=== PATIENT | male | born 1970 | race Caucasian/White ===

== ENCOUNTER 2017-01-11 10:16 | Emergency (ER) | payer OTHER ==
[2017-01-11 10:27] VITALS: TEMP 97
[2017-01-11] MEDS ORDERED: SODIUM CHLORIDE 0.9% 1,000 ML IV STA (10:52)
[2017-01-11 11:07] LABS: Basophils % (A) 1 %; CH 31.4; CHCM 35.3; Eosinophils # (A) 0.2 k/uL (0-0.7); Eosinophils % (A) 4 %; HCT 47.7 % (39.0-53.0); HDW 2.71; HGB 16.8 gm/dL (13.0-17.5); Luc # (Auto) 0.16; Luc % (Auto) 3; Lymphocytes % (A) 16 %; MCH 31.4 pg (25.0-35.0); MCHC 35.1 g/dL (31.0-37.0); MCV 89.5 fL (80.0-100.0); Monocytes # (A) 0.5 k/uL (0-1.0); Monocytes % (A) 8 %; Neutrophils # (A) 4.3 k/uL (1.3-7.7); Neutrophils % (A) 69 %; RBC 5.33 m/uL (4.30-5.90); RDW 12.7 % (11.5-15.5); WBC 6.3 k/uL (3.8-10.6); WBC (Perox) 6.15
--- NOTE | 2017-01-11 11:10 | ED ---
General Adult HPI - General Chief complaint: Abdominal Pain Stated complaint: left side pain Time Seen by Provider: 01/11/17 10:46 Source: patient, RN notes reviewed Mode of arrival: ambulatory Limitations: no limitations - History of Present Illness Initial comments: Patient 46-year-old male who presents emergency room today with chief complaint of left-sided abdominal pain. Does admit to symptoms of nausea vomiting diarrhea one week ago. States having dull pain in the left lower quadrant that seems to be getting worse. Denies any radiation. Currently rates pain 2/10. Denies ever having some symptoms in the past. Denies any other complaints. Patient denies any recent fever, chills, shortness of breath, chest pain, back pain,numbness or tingling, dysuria or hematuria, constipatio, headaches or visual changes, or any other complaints. - Related Data Home Medications Medication Instructions Recorded Confirmed Ibuprofen [Advil] 800 mg PO Q6H PRN 01/11/17 01/11/17 Previous Rx's Medication Instructions Recorded Ondansetron Odt [Zofran ODT] 4 mg PO Q8HR PRN #15 tab 01/11/17 Allergies Allergy/AdvReac Type Severity Reaction Status Date / Time No Known Allergies Allergy Verified 01/11/17 10:45 Review of Systems ROS Statement: Those systems with pertinent positive or pertinent negative responses have been documented in the HPI. ROS Other: All systems not noted in ROS Statement are negative. Past Medical History Past Medical History: No Reported History History of Any Multi-Drug Resistant Organisms: None Reported Past Surgical History: Adenoidectomy, Tonsillectomy Past Psychological History: No Psychological Hx Reported Smoking Status: Never smoker Past Alcohol Use History: Occasional Past Drug Use History: None Reported General Exam - General Exam Comments Initial Comments: General: The patient is awake and alert, in no distress, and does not appear acutely ill. Eye: Pupils are equal, round and reactive to light, extra-ocular movements are intact. No nystagmus. There is normal conjunctiva bilaterally. No signs of icterus. Ears, nose, mouth and throat: There are moist mucous membranes and no oral lesions. Neck: The neck is supple, there is no tenderness or JVD. Cardiovascular: There is a regular rate and rhythm. No murmur, rub or gallop is appreciated. Respiratory: Lungs are clear to auscultation, respirations are non-labored, breath sounds are equal. No wheezes, stridor, rales, or rhonchi. Gastrointestinal: No appearance abdomen. Normal bowel sounds. Abdomen soft on palpation. Patient does have mild tenderness left lower quadrant. No rebound tenderness. No guarding. No CVA tenderness. Musculoskeletal: Normal ROM, no tenderness. Strength 5/5. Sensation intact. Pulses equal bilaterally 2+. Neurological: A&O x 3. CN II-XII intact, There are no obvious motor or sensory deficits. Coordination appears grossly intact. Speech is normal. Skin: Skin is warm and dry and no rashes or lesions are noted. Psychiatric: Cooperative, appropriate mood & affect, normal judgment. Limitations: no limitations Course Vital Signs 01/11/17 10:25 Temperature 97.0 F L Pulse Rate 57 L Respiratory 20 Rate Blood Pressure 179/90 O2 Sat by Pulse 98 Oximetry Medical Decision Making - Medical Decision Making Patient reexamined at this time shows no signs of distress. Patient's abdomen soft on palpation. Patient's labs been reviewed are unremarkable. CT of the abdomen shows no acute abnormalities. Results were discussed with the patient. At this time patient will be discharged home with nausea medication. Advised follow-up the family doctor. Advised return to emergency room if any symptoms increase or worsen or for any other concerns. Patient states understanding and is in agreement. - Lab Data Result diagrams: 01/11/17 10:51 01/11/17 10:51 Lab Results 01/11/17 01/11/17 01/11/17 Range/Units 10:50 10:51 10:51 WBC 6.3 (3.8-10.6) k/uL RBC 5.33 (4.30-5.90) m/uL Hgb 16.8 (13.0-17.5) gm/dL Hct 47.7 (39.0-53.0) % MCV 89.5 (80.0-100.0) fL MCH 31.4 (25.0-35.0) pg MCHC 35.1 (31.0-37.0) g/dL RDW 12.7 (11.5-15.5) % Plt Count 244 (150-450) k/uL Neutrophils % 69 % Lymphocytes % 16 % Monocytes % 8 % Eosinophils % 4 % Basophils % 1 % Neutrophils # 4.3 (1.3-7.7) k/uL Lymphocytes # 1.0 (1.0-4.8) k/uL Monocytes # 0.5 (0-1.0) k/uL Eosinophils # 0.2 (0-0.7) k/uL Basophils # 0.0 (0-0.2) k/uL Sodium 143 (137-145) mmol/L Potassium 3.7 (3.5-5.1) mmol/L Chloride 105 (98-107) mmol/L Carbon Dioxide 24 (22-30) mmol/L Anion Gap 14 mmol/L BUN 13 (9-20) mg/dL Creatinine 0.91 (0.66-1.25) mg/dL Est GFR (MDRD) Af Amer >60 (>60 ml/min/1.73 sqM) Est GFR (MDRD) Non-Af >60 (>60 ml/min/1.73 sqM) Glucose 138 H (74-99) mg/dL Calcium 9.4 (8.4-10.2) mg/dL Total Bilirubin 0.8 (0.2-1.3) mg/dL AST 31 (17-59) U/L ALT 42 (21-72) U/L Alkaline Phosphatase 65 (38-126) U/L Total Protein 6.9 (6.3-8.2) g/dL Albumin 4.3 (3.5-5.0) g/dL Amylase 40 (30-110) U/L Lipase 94 (23-300) U/L Urine Color Yellow Urine Appearance Clear (Clear) Urine pH 6.0 (5.0-8.0) Ur Specific [place] 1.024 (1.001-1.035) Urine Protein Trace H (Negative) Urine Glucose (UA) Negative (Negative) Urine Ketones Negative (Negative) Urine Blood Trace H (Negative) Urine Nitrate Negative (Negative) Urine Bilirubin Negative (Negative) Urine Urobilinogen 4.0 (<2.0) mg/dL Ur Leukocyte Esterase Negative (Negative) Urine RBC 4 (0-5) /hpf Urine WBC 1 (0-5) /hpf Urine Bacteria Rare H (None) /hpf Urine Mucus Occasional H (None) /hpf Disposition Clinical Impression: Nausea & vomiting Disposition: HOME SELF-CARE Condition: Good Instructions: Acute Nausea and Vomiting (ED) Additional Instructions: Please use medication as discussed. Please follow-up with family doctor in the next 2 days of symptoms have not improved. Please return to emergency room if the symptoms increase or worsen or for any other concerns. Prescriptions: Ondansetron Odt [Zofran ODT] 4 mg PO Q8HR PRN #15 tab PRN Reason: Nausea Time of Disposition: 12:13
--- NOTE | 2017-01-11 11:12 | XR ---
EXAMINATION TYPE: XR KUB DATE OF EXAM: 01/11/2017 11:08 AM COMPARISON: NONE HISTORY: Left lower quadrant pain with nausea and vomiting TECHNIQUE: One view abdominal series FINDINGS: The osseous structures are intact. The bowel gas pattern is nonspecific. Curvature of the spine note d. IMPRESSION: 1. Nonspecific abdomen. No diagnostic evidence of obstruction. Correlate for ileus or enteritis.
[2017-01-11 11:20] LABS: ALT 42 U/L (21-72); AST 31 U/L (17-59); Alkaline Phosphatase 65 U/L (38-126); Amylase 40 U/L (30-110); Anion Gap 14 mmol/L; Blood Urea Nitrogen 13 mg/dL (9-20); Calcium 9.4 mg/dL (8.4-10.2); Carbon Dioxide 24 mmol/L (22-30); Chloride 105 mmol/L (98-107); Glucose 138 mg/dL (74-99); Non-African American GFR(MDRD) >60 (>60 ml/min/1.73 sqM); Potassium 3.7 mmol/L (3.5-5.1); Sodium 143 mmol/L (137-145); Total Bilirubin 0.8 mg/dL (0.2-1.3); Total Protein 6.9 g/dL (6.3-8.2)
[2017-01-11 11:29] LABS: Appearance,Urine Clear (Clear); Bacteria,Urine Rare /hpf; Bilirubin,Urine Negative (Negative); Glucose,Urine (UA) Negative (Negative); Ketones,Urine Negative (Negative); Leukocyte Esterase,Urine Negative (Negative); Mucus,Urine Occasional /hpf; Nitrite,Urine Negative (Negative); Particle Count 5126; Protein,Urine Trace (Negative); RBC,Urine 4 /hpf (0-5); Specific Gravity,Urine 1.024 (1.001-1.035); UA Billing (MACRO vs. MICRO) MICRO; WBC,Urine 1 /hpf (0-5)
--- NOTE | 2017-01-11 12:07 | CT ---
EXAMINATION TYPE: CT abdomen pelvis wo con DATE OF EXAM: 01/11/2017 11:58 AM COMPARISON: NONE HISTORY: patient complains of LLQ pain. CT DLP: 987.8 mGycm Automated exposure control for dose reduction was used. TECHNIQUE: Helical acquisition of images was performed from the lung bases through the pelvis. FINDINGS: LUNG BASES: No significant abnormality is appreciated. LIVER/GB: No significant abnormality is appreciated. PANCREAS: No significant abnormality is seen. SPLEEN: No significant abnormality is seen. ADRENALS: No significant abnormality is seen. KIDNEYS: No significant abnormality is seen. URINARY BLADDER: No significant abnormality is seen. ADENOPATHY: None visualized. OSSEOUS STRUCTURES: No significant abnormality is seen. BOWEL: Appendix normal. Bowel gas pattern nonspecific. Diverticulosis of the colon. IMPRESSION: NO ACUTE PROCESS.
[2017-01-11 12:27] VITALS: BP 160/80; PULSE 62; RESP 18
== END 2017-01-11 12:20 | disposition home or self-care (01) ==
LOC: EC 10:16
DX: R11.2 Nausea with vomiting, unspecified (principal); R10.32 Left lower quadrant pain; R19.7 Diarrhea, unspecified
CPT/HCPCS: 36415; 74000; 74176; 80053; 81001; 82150; 83690; 85025; 96360; 99284

== ENCOUNTER 2019-08-28 03:52 | Emergency (ER) | payer OTHER ==
[2019-08-28 04:07] VITALS: RESP 18
[2019-08-28] MEDS ORDERED: SODIUM CHLORIDE 0.9% 1,000 ML IV ONE (04:19)
--- NOTE | 2019-08-28 04:24 | ED ---
Skin/Abscess/FB HPI - General Chief complaint: Skin/Abscess/Foreign Body Stated complaint: Oral Abcess Time Seen by Provider: 08/28/19 04:10 Source: patient Mode of arrival: ambulatory Limitations: no limitations - History of Present Illness Initial comments: This patient is 48-year-old man who presents to be evaluated for concerned about a worsening dental infection. Patient states that he had noticed some toothache and facial swelling was getting worse over couple of days. He did see the dentist and was started on antibiotic today. The patient states that he was advised to be seen in emergency department if there was an increase in swelling or anything into his neck, and the patient states that these occurred. Currently denies difficulty with speech or swallowing. No difficulty with breathing. MD complaint: abscess/boil -: days(s) Tetanus Up to Date: yes Location: neck Quality: aching Consistency: constant Improves with: none Worsens with: none Associated symptoms: denies other symptoms Treatments Prior to Arrival: antibiotic - Related Data Home Medications Medication Instructions Recorded Confirmed Ibuprofen [Advil] 800 mg PO Q6H PRN 01/11/17 01/11/17 Previous Rx's Medication Instructions Recorded Ondansetron Odt [Zofran ODT] 4 mg PO Q8HR PRN #15 tab 01/11/17 Allergies Allergy/AdvReac Type Severity Reaction Status Date / Time No Known Allergies Allergy Verified 08/28/19 04:07 Review of Systems ROS Statement: Those systems with pertinent positive or pertinent negative responses have been documented in the HPI. ROS Other: All systems not noted in ROS Statement are negative. Constitutional: Denies: fever, chills ENT: Reports: dental pain Respiratory: Denies: cough, dyspnea Cardiovascular: Denies: chest pain, palpitations Gastrointestinal: Denies: abdominal pain, nausea, vomiting Skin: Denies: rash Neurological: Denies: headache, weakness Past Medical History Past Medical History: No Reported History History of Any Multi-Drug Resistant Organisms: None Reported Past Surgical History: Adenoidectomy, Tonsillectomy Past Psychological History: No Psychological Hx Reported Smoking Status: Never smoker Past Alcohol Use History: Occasional Past Drug Use History: None Reported General Exam Limitations: no limitations General appearance: alert, in no apparent distress Head exam: Present: atraumatic, normocephalic Eye exam: Present: normal appearance, PERRL, EOMI. Absent: scleral icterus, conjunctival injection ENT exam: Present: other (The patient has caries to tooth #29. There is soft tissue swelling adjacent to the mandible.) Neck exam: Present: tenderness, full ROM. Absent: meningismus Respiratory exam: Present: normal lung sounds bilaterally. Absent: respiratory distress, wheezes, rales, rhonchi, stridor Cardiovascular Exam: Present: regular rate, normal rhythm, normal heart sounds. Absent: systolic murmur, diastolic murmur, rubs, gallop Neurological exam: Present: alert Skin exam: Present: warm, dry, intact, normal color. Absent: rash Course Vital Signs 08/28/19 08/28/19 04:05 05:42 Temperature 97.3 F L 98.3 F Pulse Rate 77 59 L Respiratory 18 18 Rate Blood Pressure 152/99 130/84 O2 Sat by Pulse 97 96 Oximetry Medical Decision Making - Lab Data Result diagrams: 08/28/19 04:38 08/28/19 04:38 Lab Results 08/28/19 08/28/19 Range/Units 04:38 04:38 WBC 8.5 (3.8-10.6) k/uL RBC 5.37 (4.30-5.90) m/uL Hgb 16.4 (13.0-17.5) gm/dL Hct 48.7 (39.0-53.0) % MCV 90.7 (80.0-100.0) fL MCH 30.6 (25.0-35.0) pg MCHC 33.7 (31.0-37.0) g/dL RDW 13.1 (11.5-15.5) % Plt Count 246 (150-450) k/uL Neutrophils % 71 % Lymphocytes % 14 % Monocytes % 8 % Eosinophils % 3 % Basophils % 2 % Neutrophils # 6.0 (1.3-7.7) k/uL Lymphocytes # 1.2 (1.0-4.8) k/uL Monocytes # 0.7 (0-1.0) k/uL Eosinophils # 0.2 (0-0.7) k/uL Basophils # 0.2 (0-0.2) k/uL Sodium 139 (137-145) mmol/L Potassium 4.1 (3.5-5.1) mmol/L Chloride 108 H (98-107) mmol/L Carbon Dioxide 21 L (22-30) mmol/L Anion Gap 10 mmol/L BUN 11 (9-20) mg/dL Creatinine 0.74 (0.66-1.25) mg/dL Est GFR (CKD-EPI)AfAm >90 (>60 ml/min/1.73 sqM) Est GFR (CKD-EPI)NonAf >90 (>60 ml/min/1.73 sqM) Glucose 104 H (74-99) mg/dL Calcium 9.7 (8.4-10.2) mg/dL Disposition Clinical Impression: Pain, dental Disposition: HOME SELF-CARE Condition: Good Instructions (If sedation given, give patient instructions): Toothache (ED) Is patient prescribed a controlled substance at d/c from ED?: No Referrals: Ignacio Hughes MD [Primary Care Provider] - 1-2 days
[2019-08-28] MEDS ORDERED: CLINDAMYCIN 600 MG in DEXTROSE 5% IN WATER 50 ML IVPB ONE ×2 (04:30)
[2019-08-28 04:55] LABS: Basophils # (A) 0.2 k/uL (0-0.2); Basophils % (A) 2 %; Eosinophils # (A) 0.2 k/uL (0-0.7); Eosinophils % (A) 3 %; HCT 48.7 % (39.0-53.0); HGB 16.4 gm/dL (13.0-17.5); Lymphocytes # (A) 1.2 k/uL (1.0-4.8); Lymphocytes % (A) 14 %; MCH 30.6 pg (25.0-35.0); MCHC 33.7 g/dL (31.0-37.0); MCV 90.7 fL (80.0-100.0); Mean Platelet Volume 6.6; Monocytes # (A) 0.7 k/uL (0-1.0); Monocytes % (A) 8 %; Neutrophils % (A) 71 %; Platelet Count 246 k/uL (150-450); RBC 5.37 m/uL (4.30-5.90); RDW 13.1 % (11.5-15.5); WBC 8.5 k/uL (3.8-10.6)
[2019-08-28 05:08] LABS: African American GFR (CKD) >90 (>60 ml/min/1.73 sqM); Anion Gap 10 mmol/L; Blood Urea Nitrogen 11 mg/dL (9-20); Calcium 9.7 mg/dL (8.4-10.2); Carbon Dioxide 21 mmol/L (22-30); Chloride 108 mmol/L (98-107); Glucose 104 mg/dL (74-99); Potassium 4.1 mmol/L (3.5-5.1); Sodium 139 mmol/L (137-145)
--- NOTE | 2019-08-28 05:37 | CT ---
EXAM: CT Neck With Intravenous Contrast CLINICAL HISTORY: ITS.REASON CT Reason: dental infection TECHNIQUE: Axial computed tomography images of the neck with intravenous contrast. CTDI is 12 mGy and DLP is 388 mGy-cm. This CT exam was performed using one or more of the following dose reduction techniques: automated exposure control, adjustment of the mA and/or kV according to patient size, and/or use of iterative reconstruction technique. COMPARISON: No relevant prior studies available. FINDINGS: Oropharynx: No significant tonsillar enlargement. No peritonsillar abscess. Hypopharynx: Unremarkable. Larynx: Normal epiglottis. Trachea: Unremarkable. Retropharyngeal space: Unremarkable. Submandibular/parotid glands: Glands are normal in size. Thyroid: No nodules. Bones/joints: No acute fracture. Soft tissues: Soft tissue stranding in the right lower/submental region. No abscess.. Vasculature: Unremarkable. Lymph nodes: No lymphadenopathy. Sinuses: Unremarkable. No acute sinusitis. Mastoid air cells: Unremarkable. No mastoid effusion. Lung apices: Unremarkable. Periapical lucency around the root of the right mandibular first molar. IMPRESSION: Right lower facial/ submental cellulitis secondary to odontogenic disease involving the right mandibular first molar. No abscess.
[2019-08-28 05:44] VITALS: BP 130/84; PULSE 59; TEMP 98.3
== END 2019-08-28 06:02 | disposition home or self-care (01) ==
LOC: EC 03:52
DX: K08.89 Other specified disorders of teeth and supporting structures (principal); R22.0 Localized swelling, mass and lump, head
CPT/HCPCS: 36415; 80048; 85025; 70491; 99283; 96365; Q9967

== ENCOUNTER → 2021-07-01 | Outpatient (CLI) | payer OTHER ==
[2021-07-01 14:55] LABS: Basophils # (A) 0.09 X 10*3/uL (0.00-0.10); Eosinophils # (A) 0.11 X 10*3/uL (0.04-0.35); Eosinophils % (A) 1.3 %; HCT 51.7 % (39.6-50.0); HGB 17.6 g/dL (13.0-17.0); Lymphocytes # (A) 1.54 X 10*3/uL (0.90-5.00); Lymphocytes % (A) 17.6 %; MCH 31.2 pg (27.0-32.0); MCV 91.5 fL (80.0-97.0); Mean Platelet Volume 10.3 fL (9.5-12.2); Monocytes # (A) 0.95 X 10*3/uL (0.20-1.00); Monocytes % (A) 10.8 %; Neutrophils # (A) 6.01 X 10*3/uL (1.80-7.70); Neutrophils % (A) 68.5 %; Platelet Count 329 X 10*3/uL (140-440); RBC 5.65 X 10*6/uL (4.40-5.60); RDW 12.5 % (11.5-14.5); WBC 8.77 X 10*3/uL (4.50-10.00)
[2021-07-01 15:48] LABS: African American GFR (CKD) 99.8 (60.0-200.0); Albumin 4.5 g/dL (3.80-4.90); Albumin/Globulin Ratio 2.14 (1.60-3.17); Anion Gap 9.2 mmol/L (4.00-12.00); Calcium 9.5 mg/dL (8.7-10.3); Carbon Dioxide 26.8 mmol/L (21.6-31.8); Chol/HDL Ratio 4.6; Globulin 2.1 g/dL (1.6-3.3); LDL Cholesterol,Calculated 121.6 mg/dL (0.0-131.0); Non-African American GFR(CKD) 86.2 (60.0-200.0); Potassium 3.5 mmol/L (3.5-5.5); Total Bilirubin 0.8 mg/dL (0.2-1.2); Total Protein 6.6 g/dL (6.2-8.2); VLDL Calculation 22.4 mg/dL (5.00-40.00)
[2021-07-01 15:56] LABS: T4, Free (Free Thyroxine) 1.2 ng/dL (0.80-1.80)
== END | disposition home or self-care (01) ==
LOC: LABWHC1 08:15
PROVIDERS: ATTEND Family Medicine
DX: Z00.00 Encounter for general adult medical examination without abnormal findings (principal); I10 Essential (primary) hypertension; E55.9 Vitamin D deficiency, unspecified; R53.83 Other fatigue; Z79.899 Other long term (current) drug therapy
CPT/HCPCS: 36415; 80053; 80061; 82306; 84439; 84443; 85025

== ENCOUNTER 2021-07-02 14:20 | Emergency (ER) | payer OTHER ==
[2021-07-02 14:25] VITALS: BP 146/104; PULSE 71; RESP 18; TEMP 98.3
[2021-07-02] MEDS ORDERED: CYCLOBENZAPRINE 10 MG TAB PO STA (14:54)
[2021-07-02] MEDS ORDERED: KETOROLAC 15 MG/ML 1 ML VIAL IM STA (14:54)
[2021-07-02] MEDS ORDERED: LIDOCAINE 5% PATCH TOPICAL STA (14:55)
--- NOTE | 2021-07-02 15:01 | ED ---
Neck Injury/Pain HPI - General Chief Complaint: Neck Pain/Injury Stated Complaint: Lt Shoulder Pain Time Seen by Provider: 07/02/21 14:33 Mode of arrival: ambulatory Limitations: no limitations - History of Present Illness Initial Comments: 50-year-old male presents to emergency department with a chief complaint of neck pain. Patient reports about 2 weeks ago he "tweaked" his neck and went to his primary care physician who obtained x-rays and discharge him with multiple subluxated. Patient reports she has been doing relatively okay until today When he tweaked his neck again while he was melissa. Patient reports his slight limited range of motion with left rotation but other reports no significant limitations. Patient reports some mid cervical and right paraspinal on his neck. He denies any paresthesias or weakness to the extremities. Denies any direct injury to his neck. - Related Data Home Medications Medication Instructions Recorded Confirmed Ibuprofen [Advil] 800 mg PO Q6H PRN 01/11/17 01/11/17 Previous Rx's Medication Instructions Recorded Ondansetron Odt [Zofran ODT] 4 mg PO Q8HR PRN #15 tab 01/11/17 Allergies Allergy/AdvReac Type Severity Reaction Status Date / Time No Known Allergies Allergy Verified 08/28/19 04:07 Review of Systems ROS Statement: Those systems with pertinent positive or pertinent negative responses have been documented in the HPI. ROS Other: All systems not noted in ROS Statement are negative. Past Medical History Past Medical History: No Reported History History of Any Multi-Drug Resistant Organisms: None Reported Past Surgical History: Adenoidectomy, Tonsillectomy Past Psychological History: No Psychological Hx Reported Smoking Status: Never smoker Past Alcohol Use History: Occasional Past Drug Use History: None Reported General Exam Limitations: no limitations General appearance: alert, in no apparent distress Head exam: Present: atraumatic, normocephalic, normal inspection Eye exam: Present: normal appearance, PERRL Pupils: Present: normal accommodation ENT exam: Present: normal exam, normal oropharynx, mucous membranes moist Neck exam: Present: normal inspection, tenderness (right paraspinal and midcervical tenderness), full ROM. Absent: meningismus, lymphadenopathy, thyromegaly Respiratory exam: Present: normal lung sounds bilaterally. Absent: respiratory distress, wheezes, rales, rhonchi Cardiovascular Exam: Present: regular rate, normal rhythm, normal heart sounds. Absent: systolic murmur Extremities exam: Present: normal inspection, full ROM, normal capillary refill. Absent: tenderness, pedal edema, joint swelling Back exam: Present: normal inspection, full ROM. Absent: tenderness, CVA tenderness (R), CVA tenderness (L), muscle spasm, paraspinal tenderness, vertebral tenderness Neurological exam: Present: alert, oriented X3 Psychiatric exam: Present: normal affect, normal mood Skin exam: Present: warm, dry, intact, normal color Course Vital Signs 07/02/21 14:22 Temperature 98.3 F Pulse Rate 71 Respiratory 18 Rate Blood Pressure 146/104 O2 Sat by Pulse 98 Oximetry Medical Decision Making - Medical Decision Making 50-year-old male presents to emergency department with a chief complaint of neck pain. On physical examination, patient is neurovascularly intact. Mild mid cervical and paraspinal tenderness with almost full range of motion. No signs of radiculopathy at this time. I did offer CT imaging of the cervical spine considering the patient had x-rays of the neck within the last few weeks. Patient declined. States he would rather see his primary care physician and have an MRI obtained of cervical spine. I gave the patient Toradol, Flexeril and a Lidoderm patch. On reevaluation, he reports improving symptoms. States he has enough muscle relaxers at home. Pleasant to take on a Motrin for pain. Return parameters were thoroughly discussed the patient is an attending ago. Patient ready sees an strategic marketing specialist. Case discussed with physician. Disposition Clinical Impression: Strain of neck muscle Disposition: HOME SELF-CARE Condition: Stable Instructions (If sedation given, give patient instructions): Cervical Strain (ED) Additional Instructions: Please return to the Emergency Department if symptoms worsen or any other concerns. Is patient prescribed a controlled substance at d/c from ED?: No Referrals: Ignacio Hughes MD [Primary Care Provider] - 1-2 days Time of Disposition: 15:44
== END 2021-07-02 16:32 | disposition home or self-care (01) ==
LOC: EC 14:20
DX: S16.1XXA Strain of muscle, fascia and tendon at neck level, initial encounter (principal); M25.512 Pain in left shoulder; X50.1XXA Overexertion from prolonged static or awkward postures, initial encounter
CPT/HCPCS: 99283; 96372; J1885

== ENCOUNTER → 2021-08-15 | Outpatient (CLI) | payer OTHER ==
--- NOTE | 2021-08-15 08:27 | MR ---
EXAMINATION TYPE: MR cervical spine wo con DATE OF EXAM: 08/15/2021 COMPARISON: None HISTORY: Neck pain, headaches x 3 mos. CONTRAST: Performed utilizing 0 mL intravenous Gadavist gadolinium contrast. TECHNIQUE: Multiplanar multiecho imaging on a 3.0 Dilma magnet is performed through the cervical spin e. FINDINGS: The craniovertebral junction is normal. Vertebral body alignment is normal. There is dis c desiccation at the mid cervical spine. Disc heights appear preserved. Vertebral body heights appear preserved. C7-T1: No focal disc herniation or significant disc bulge is evident. No spinal canal stenosis or n eural foraminal stenosis is present. C6-7: Minimal disc bulges into the thecal sac contact. No cord contact is evident. No spinal canal st enosis or neural foraminal stenosis present.. C5-6: There is moderate broad-based disc bulge with [id number] anterior thecal sac impression p revious comes in close approximation of the spinal cord. No AP spinal canal stenosis is present. Ther e is some mild left foraminal stenosis.. C4-5: There is small left paracentral protrusion. Some cord contact without cord deformity may be pre sent. Correlate with the patient's clinical symptoms. Neural foramen are patent C3-4: No focal disc herniation or significant disc bulge is evident. No spinal canal stenosis or jesus ral foraminal stenosis is present. C2-3: No focal disc herniation or significant disc bulge is evident. No spinal canal stenosis or jesus ral foraminal stenosis is present. IMPRESSIONS: 1. Small left paracentral disc protrusion at C4-5 appears to have some cord contact and some cord fla ttening. Correlate with the patient clinical symptoms. Stenosis is not evident at this level. 2. Broad-based disc bulging greater C5-6 and C6-7. No cord contact or stenosis is evident
== END | disposition home or self-care (01) ==
LOC: RADMRIMAIN 06:01
PROVIDERS: ATTEND Family Medicine
DX: M50.123 Cervical disc disorder at C6-C7 level with radiculopathy (principal)
CPT/HCPCS: 72141

== ENCOUNTER 2021-10-25 15:19 | Observation (INO) | payer OTHER ==
[2021-10-25] MEDS ORDERED: ASPIRIN 81 MG PO STA (15:37)
[2021-10-25] MEDS ORDERED: NITROGLYCERIN OINT 1 INCH/GM PACKET TOPICAL STA (15:37)
[2021-10-25 16:10] LABS: Basophils # (A) 0.1 k/uL (0-0.2); Basophils % (A) 1 %; Eosinophils # (A) 0.3 k/uL (0-0.7); Eosinophils % (A) 4 %; HCT 48.7 % (39.0-53.0); HGB 16.8 gm/dL (13.0-17.5); Lymphocytes # (A) 2.2 k/uL (1.0-4.8); Lymphocytes % (A) 25 %; MCH 32.9 pg (25.0-35.0); MCHC 34.6 g/dL (31.0-37.0); MCV 95.1 fL (80.0-100.0); Mean Platelet Volume 7.3; Monocytes # (A) 0.7 k/uL (0-1.0); Monocytes % (A) 8 %; Neutrophils # (A) 5.4 k/uL (1.3-7.7); Neutrophils % (A) 60 %; Platelet Count 271 k/uL (150-450); RBC 5.12 m/uL (4.30-5.90); RDW 13.3 % (11.5-15.5)
[2021-10-25 16:17] LABS: ALT 41 U/L (4-49); AST 36 U/L (17-59); African American GFR (CKD) >90 (>60 ml/min/1.73 sqM); Albumin 4.3 g/dL (3.5-5.0); Alkaline Phosphatase 82 U/L (38-126); Anion Gap 11 mmol/L; Blood Urea Nitrogen 9 mg/dL (9-20); Calcium 9.2 mg/dL (8.4-10.2); Carbon Dioxide 20 mmol/L (22-30); Chloride 108 mmol/L (98-107); Glucose 101 mg/dL (74-99); Magnesium 1.9 mg/dL (1.6-2.3); Non-African American GFR(CKD) >90 (>60 ml/min/1.73 sqM); Potassium 3.7 mmol/L (3.5-5.1); Sodium 139 mmol/L (137-145); Total Bilirubin 0.6 mg/dL (0.2-1.3); Total Protein 6.9 g/dL (6.3-8.2)
--- NOTE | 2021-10-25 16:25 | XR ---
EXAMINATION TYPE: XR chest 2V DATE OF EXAM: 10/25/2021 COMPARISON: NONE TECHNIQUE: PA and lateral views submitted. HISTORY: Chest pain FINDINGS: The lungs are clear and there is no pneumothorax, pleural effusion, or focal pneumonia. Heart size is within normal limits. Hypertrophic and degenerative change of the spine. Coarsened interstitium. IMPRESSION: 1. Correlate for mild bronchitis or chronic interstitial lung disease. Mild interstitial pneumonitis in the differential diagnosis.
[2021-10-25 16:29] LABS: Partial Thromboplastin Time 25.7 sec (22.0-30.0); Prothrombin Time 10.7 sec (9.0-12.0)
--- NOTE | 2021-10-25 18:36 | ED ---
Chest Pain HPI - General Chief Complaint: Chest Pain Stated Complaint: Chest Pain Time Seen by Provider: 10/25/21 15:33 Source: patient Mode of arrival: ambulatory Limitations: no limitations - History of Present Illness Initial Comments: This 51-year-old male presents complaining of midsternal chest pain. This started this afternoon while at work sitting at his desk. This was not exertional in nature. It did not radiate. He denies any shortness of breath. There is no leg pain or swelling. He denies any history of DVT or PE. He denies any history of previous cardiac disease. His last stress test was approximately 10 years ago and was negative. He denies any tobacco use, hypertension and hypercholesterolemia, family history, or diabetes. No other complaints or modifying factors. - Related Data Home Medications Medication Instructions Recorded Confirmed Ibuprofen [Advil] 800 mg PO Q6H PRN 01/11/17 01/11/17 Previous Rx's Medication Instructions Recorded Ondansetron Odt [Zofran ODT] 4 mg PO Q8HR PRN #15 tab 01/11/17 Allergies Allergy/AdvReac Type Severity Reaction Status Date / Time No Known Allergies Allergy Verified 10/25/21 15:30 Review of Systems ROS Statement: Those systems with pertinent positive or pertinent negative responses have been documented in the HPI. ROS Other: All systems not noted in ROS Statement are negative. Past Medical History Past Medical History: No Reported History Additional Past Medical History / Comment(s): herniated C4 History of Any Multi-Drug Resistant Organisms: None Reported Past Surgical History: Adenoidectomy, Tonsillectomy Past Psychological History: No Psychological Hx Reported Smoking Status: Never smoker Past Alcohol Use History: Occasional Past Drug Use History: None Reported General Exam - General Exam Comments Initial Comments: GENERAL: The patient is well nourished and well hydrated. VITAL SIGNS: Heart rate, blood pressure, respiratory rate reviewed as recorded in nurse's notes. EYES: Pupils are round and reactive. Extraocular movements are intact. No conjunctival / lid redness or swelling. ENT: No external evidence of injury, swelling, or ecchymosis. Airway is patent. Throat is clear. NECK: Nontender. No swelling or evidence of injury. No subcutaneous emphysema. Trachea is midline. No thyroid mass. HEART: Regular rate and rhythm. Good peripheral pulses. LUNGS/CHEST: Breath sounds clear and equal bilaterally. No rales, rhonchi, or wheezes. No ecchymosis, subcutaneous emphysema, or tenderness. ABDOMEN: Abdomen soft without tenderness. No palpable masses or organomegaly. No peritoneal signs. No abdominal wall swelling or ecchymosis. EXTREMITIES: No extremity tenderness. Normal muscle tone and function. No thoracolumbar tenderness. No leg swelling. NEUROLOGIC: Sensation is grossly intact. Cranial nerve exam reveals face is symmetrical, tongue is midline, speech is clear. SKIN: No abrasions or ecchymosis is noted. No induration or masses noted. PSYCHIATRIC: Alert and oriented. Appropriate behavior and judgment. Limitations: no limitations Course Vital Signs 10/25/21 10/25/21 15:26 16:30 Temperature 97.5 F L Pulse Rate 69 80 Respiratory 18 16 Rate Blood Pressure 174/68 137/91 O2 Sat by Pulse 98 94 L Oximetry Chest Pain MDM - [facility] The patient was seen and examined. All diagnostics were reviewed. EKG was done and shows a normal sinus rhythm at a rate of 75. There is no acute ST-T wave changes noted. The OR intervals 156, QRS duration is 82, and the QTC intervals 426. His receive an aspirin as well as Nitropaste. He is watched on a court monitor and no ectopy is identified. He is in no distress on recheck. The cardiac profile labs are all negative. Chest x-ray did not show any acute abnormalities per my review but showed possible interstitial pneumonitis versus other per radiologist. Please see report for details. Overall, it is felt as though symptomatology is worrisome for the possibility of acute coronary syndrome. It is felt as though he benefit from admission to the hospital under observation for further treatment. Case is discussed with Dr. Holt and he is agreeable with admission with serial troponins, echocardiogram, and cardiology consult. Patient appears to be doing well on recheck and is agreeable to this plan. Disposition Clinical Impression: Chest pain, Unstable angina pectoris Disposition: ADMITTED IP TO THIS HOSP Condition: Good Is patient prescribed a controlled substance at d/c from ED?: No Referrals: Ignacio Hughes MD [Primary Care Provider] - 1-2 days Time of Disposition: 18:43 Decision Date: 10/25/21 Decision Time: 18:43
[2021-10-25] MEDS: ENOXAPARIN 40 MG/0.4 ML SYRINGE SQ SCH (21:11)
[2021-10-25] MEDS: ACETAMINOPHEN TAB 325 MG TAB PO PRN (21:53)
[2021-10-26] MEDS: NITROGLYCERIN OINT 1 INCH/GM PACKET TOPICAL SCH ×2 (00:17→06:08)
[2021-10-26] MEDS: ACETAMINOPHEN TAB 325 MG TAB PO PRN ×2 (04:21→09:41)
[2021-10-26] MEDS ORDERED: ONDANSETRON 4 MG/2 ML VIAL IVP PRN (06:15)
[2021-10-26] MEDS: ENOXAPARIN 40 MG/0.4 ML SYRINGE SQ SCH (07:11)
[2021-10-26 07:47] VITALS: BP 129/64; PULSE 68; RESP 15; TEMP 97.6
[2021-10-26] MEDS ORDERED: ASPIRIN 325 MG TAB PO SCH (09:00)
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
--- NOTE | 2021-10-26 10:24 | ECHOF ---
Referral Reason:cp MEASUREMENTS -------- HEIGHT: 182.9 cm WEIGHT: 117.9 kg BP: 113/74 RVIDd: 3.1 cm (< 3.3) IVSd: 1.5 cm (0.6 - 1.1) LVIDd: 4.4 cm (3.9 - 5.3) LVPWd: 1.4 cm (0.6 - 1.1) IVSs: 1.8 cm LVIDs: 3.0 cm LVPWs: 1.9 cm LA Diam: 3.8 cm (2.7 - 3.8) LAESV Index (A-L): 20.17 ml/m Ao Diam: 3.8 cm (2.0 - 3.7) AV Cusp: 2.4 cm (1.5 - 2.6) MV EXCURSION: 9.371 mm (> 18.000) MV EF SLOPE: 56 mm/s (70 - 150) EPSS: 0.9 cm MV E Wolfgang: 1.05 m/s MV DecT: 212 ms MV A Wolfgang: 0.78 m/s MV E/A Ratio: 1.34 RAP: 5.00 mmHg RVSP: 39.31 mmHg FINDINGS -------- Sinus rhythm. This was a technically adequate study. The left ventricular size is normal. There is moderate concentric left ventricular hypertrophy. O verall left ventricular systolic function is normal with, an EF between 60 - 65 %. The right ventricle is normal in size. Normal LA size by volume 22+/-6 ml/m2. The right atrium is normal in size. Interatrial and interventricular septum intact. The aortic valve is trileaflet, and appears structurally normal. No aortic stenosis or regurgitation. There is trace to mild mitral regurgitation. Trace tricuspid regurgitation present. Right ventricular systolic pressure is normal at < 35 mmHg. The pulmonic valve is normal. The aortic root is dilated measuring 3.8cm. IVC Not well visulized. There is no pericardial effusion. CONCLUSIONS -------- 1. The left ventricular size is normal. 2. There is moderate concentric left ventricular hypertrophy. 3. Overall left ventricular systolic function is normal with, an EF between 60 - 65 %. 4. The aortic valve is trileaflet, and appears structurally normal. No aortic stenosis or regurgitati on. 5. There is trace to mild mitral regurgitation. 6. Trace tricuspid regurgitation present. 7. The aortic root is dilated measuring 3.8cm. 8. There is no pericardial effusion. OPERATING ENGINEER APPRENTICE: Whit Min RDCS
[2021-10-26 10:32] LABS: Chol/HDL Ratio 4.35 Ratio; LDL Cholesterol,Calculated 111.3 mg/dL (0.0-131.0)
--- NOTE | 2021-10-26 10:51 | P.HPIM ---
History of Present Illness H&P Date: 10/26/21 Chief Complaint: Chest pain This is a 51-year-old gentleman presented to the ER with complaints of nonexertional, nonradiating midsternal chest pain/pressure lasting for approx imately 5 hours, occurred at work while sitting at his desk, in a patient with past medical history of herniated C4, family history of hypertension. Denied coughing, fevers, or shortness of breath. Denies any diaphoresis Denied nausea, vomiting or abdominal pain. Chest pressure resolved after receiving nitroglycerin in the ER.Chest x-ray reporting coarsened interstitium, possible mild bronchitis or chronic interstitial lung disease, possible mild interstitial pneumonitis. Denies cough or congestion. Afebrile, normal WBC. EKG reporting Normal sinus rhythm. Telemetry reported sinus bradycardia sinus rhythm, heart rates 50s to 60s, occasional sinus arrhythmia. Troponins negative 3. Echo reporting normal LV function, EF 6065%, dilated aortic root 3.8 cm. Review of Systems ROS Statement: Those systems with pertinent positive or pertinent negative responses have been documented in the HPI. ROS Other: All systems not noted in ROS Statement are negative. Past Medical History Past Medical History: No Reported History Additional Past Medical History / Comment(s): herniated C4 History of Any Multi-Drug Resistant Organisms: None Reported Past Surgical History: Adenoidectomy, Tonsillectomy Past Anesthesia/Blood Transfusion Reactions: No Reported Reaction Past Psychological History: No Psychological Hx Reported Smoking Status: Never smoker Past Alcohol Use History: Occasional Past Drug Use History: None Reported Medications and Allergies Home Medications Medication Instructions Recorded Confirmed Type No Known Home Medications 10/25/21 10/25/21 History Allergies Allergy/AdvReac Type Severity Reaction Status Date / Time No Known Allergies Allergy Verified 10/25/21 19:54 Physical Exam Vitals: Vital Signs Temp Pulse Pulse Resp BP BP Pulse Ox 10/26/21 08:00 15 10/26/21 07:15 97.6 F 68 15 129/64 95 10/26/21 06:07 67 113/74 10/26/21 02:00 97.7 F 81 17 102/71 97 10/26/21 01:34 72 18 10/25/21 21:05 72 18 10/25/21 20:00 97.8 F 72 18 138/76 97 10/25/21 19:21 75 18 110/73 97 10/25/21 16:30 80 16 137/91 94 L 10/25/21 15:26 97.5 F L 69 18 174/68 98 Intake and Output 10/25/21 10/26/21 10/26/21 22:59 06:59 14:59 Other: Voiding Method Toilet Toilet Toilet # Voids 1 2 # Bowel Movements 1 Weight 117.934 kg PHYSICAL EXAM: VITAL SIGNS: As above GENERAL: Obese, pleasant ,Sitting up in bed, no acute distress HEENT: Conjunctivae normal. eyes normal. NECK: No JVD. No thyroid enlargement. No LNs CARDIOVASCULAR: S1, S2 regular.. No murmur RESPIRATION: Breath sounds clear to auscultation ,diminished in the bases. No rhonchi or crackles. No bronchial breathing. ABDOMEN: Soft, nontender . No guarding. no masses palpable. Positive Bowel sounds. LEGS: No edema. no swelling PSYCHIATRY: Alert and oriented X3, mood and affect normal. NERVOUS SYSTEM: Cranial N 2-12 grossly normal. Moves all 4 limbs. No focal deficits. Strength and sensation grossly intact.. Skin: Warm and dry, no rash Results CBC & Chem 7: 10/25/21 16:03 10/25/21 16:03 Labs: Abnormal Lab Results - Last 24 Hours (Table) 10/25/21 Range/Units 16:03 Chloride 108 H (98-107) mmol/L Carbon Dioxide 20 L (22-30) mmol/L Glucose 101 H (74-99) mg/dL Thrombosis Risk Factor Assmnt - Choose All That Apply Each Factor Represents 1 point: Age 41-60 years, Obesity (BMI >25), Swollen legs (current) Thrombosis Risk Factor Assessment Total Risk Factor Score: 3 Thrombosis Risk Factor Assessment Level: Moderate Risk Assessment and Plan Assessment: Acute chest pain, troponins negative 3 Sinus arrhythmia Suspected obstructive sleep apnea, further workup outpatient. Morbid Obesity, 118 kg Dilated aortic root, 3.8 cm, further monitoring outpatient. Plan: Continue on current medication regime ,monitoring and symptomatic treatment. lipid panel pending. Cardiology pending, potential stress test. Discharge planning in progress for today pending potential stress test, final DC recommendations and clearance per cardiology. The impression and plan of care has been dictated as directed. : I performed a history and examination of this patient, discussed the same with the dictator. I agree with the dictator's note ,documented as a scribe. Any additional findings or plans will be noted.
--- NOTE | 2021-10-26 13:56 | ECHOS ---
STRESS ECHOCARDIOGRAM INDICATIONS: Chest pain. BASELINE HEART RATE: 76 BASELINE BLOOD PRESSURE: 123/59 MAXIMUM HEART RATE: 154 MAXIMUM BLOOD PRESSURE: 123/59 85% MPHR: 142 100% MPHR: 167 METS: 5.9 MAXIMUM STAGE REACHED: II TOTAL EXERCISE TIME: 5:35 CLINICAL INFORMATION: Baseline EKG shows sinus rhythm, normal axis, normal intervals. Patient exercised on Usman protocol for a total of 5-1/2 minutes, achieving 7 METS, 92% of predicted maximal heart rate, without chest pain. At peak exercise there was [address]-segment depression noted. Baseline echo shows normal left ventricular size, wall motion and systolic function. Post exercise, this was a technically suboptimal study and contrast agent was given to enhance endocardial definition. At peak exercise there is normal hyperdynamic response of all segments of myocardium noted. CONCLUSIONS: 1. Limited exercise tolerance. 2. Abnormal stress test by EKG criteria. 3. Normal stress echo. MMODL / IJN: [id number] /
[2021-10-27] MEDS ORDERED: ASPIRIN 81 MG PO SCH (09:00)
== END 2021-10-26 12:44 ==
LOC: EC 15:19 → 6NMEDSUR 18:33
PROVIDERS: ADMIT Family Medicine; ATTEND Family Medicine
DX: R07.89 Other chest pain (principal); I77.810 Thoracic aortic ectasia; I49.8 Other specified cardiac arrhythmias; M50.21 Other cervical disc displacement, high cervical region; R06.83 Snoring; R11.0 Nausea; R00.1 Bradycardia, unspecified; G89.29 Other chronic pain; M54.9 Dorsalgia, unspecified; E66.01 Morbid (severe) obesity due to excess calories; Z68.37 Body mass index [BMI] 37.0-37.9, adult; Z20.822 Contact with and (suspected) exposure to COVID-19; Z98.890 Other specified postprocedural states; Z82.49 Family history of ischemic heart disease and other diseases of the circulatory system
CPT/HCPCS: 96372 ×2; 96374; 99285; 36415; 93005; 93306; 93351; 80061; 80053; 83735; 84484; 85025; 85610; 85730; 87635; 71046; G0378 ×2; J2405; J1650 ×2; Q9950

== ENCOUNTER → 2022-02-22 | Outpatient (CLI) | payer OTHER ==
--- NOTE | 2022-02-22 13:37 | MR ---
EXAMINATION TYPE: MR knee RT wo con DATE OF EXAM: 02/22/2022 COMPARISON: None HISTORY: Rt knee pain TECHNIQUE: Multiplanar, multisequence imaging of the right knee is performed without IV contrast. FINDINGS: Anterior cruciate and posterior cruciate ligaments are intact. There is grade 3 abnormal si gnal involving the posterior horn and body of the medial meniscus. Lateral meniscus demonstrates intr asubstance signal most typical of myxoid degeneration. There is thinning of the articular femoral cartilage near the posterior horn of the medial meniscus. Reactive marrow changes are seen. There is increased fluid surrounding the medial collateral ligament without evidence of overt tear sm all amount of joint fluid seen laterally. Patellar and quadriceps tendons are intact. Patellar cartilage demonstrates very mild fibrillation al nettie the medial patellar facet. No diagnostic evidence of marrow edema or contusion. IMPRESSION: 1. Posterior horn medial meniscal tear. 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 2. MCL sprain without evidence of overt tear
== END | disposition home or self-care (01) ==
LOC: RADMRIMAIN 07:46
PROVIDERS: ATTEND Family Medicine
DX: M23.321 Other meniscus derangements, posterior horn of medial meniscus, right knee (principal); S83.411A Sprain of medial collateral ligament of right knee, initial encounter; X58.XXXA Exposure to other specified factors, initial encounter

== ENCOUNTER 2022-04-21 07:26 | Day surgery (SDC) | payer OTHER ==
[2022-04-19 12:56] VITALS: BMI 36.6
--- NOTE | 2022-04-20 10:01 | HP ---
HISTORY AND PHYSICAL CHIEF COMPLAINT: Right knee pain. 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 He slipped and fell in his driveway, twisting his knee. He has had pain, swelling and giving way ever since. He is also having night symptoms. He notes it bothers him significantly every day. He has been taking medications, with only minimal relief. He denies previous problems. PAST MEDICAL HISTORY: Significant for hypertension. PAST SURGICAL HISTORY: Negative. CURRENT MEDICATIONS: Tramadol. ALLERGIES: He denies drug allergies. FAMILY HISTORY: Significant for diabetes and renal disease. SOCIAL HISTORY: Negative for current tobacco or alcohol use. REVIEW OF SYSTEMS: 16-point review of systems otherwise reviewed and is noncontributory. PHYSICAL EXAMINATION: On examination, the patient is approximately 6 feet tall, 270 pounds of endomorphic habitus. HEENT exam is nonfocal. NECK is supple. He has painless passive motion of the right hip. Straight-leg raise is negative. Active motion right knee: Minus 6 to 105 degrees of flexion. He has a moderate effusion. He is tender about the medial joint line. Collaterals are stable. Latha is negative. Domingo's elicits medial pain. He does have an antalgic gait pattern. His distal neurovascular exam appears intact in the right lower extremity. MRI report right knee 02/22/2022 shows evidence of a posterior medial meniscal tear along with edema adjacent to the MCL. IMPRESSION: 1. Right knee internal derangement with symptomatic medial meniscal tear. 2. Right knee moderate medial compartment osteoarthrosis. RECOMMENDATIONS: I talked to the patient at length regarding his condition along with treatment options. At this point, he is having significant pain and mechanical symptoms after this acute injury despite attempted conservative measures. After thorough discussion, he elected to proceed with surgery. We will plan to proceed with arthroscopic evaluation, probable partial medial meniscectomy. We will likely perform that as an outpatient procedure. Risks and benefits were discussed at length in layman's terms. MMODL / IJN: [id number] /
[~2022-04-21 07:26] MED LIST: DEXAMETHASONE SOD PHOSPHATE 4 MG/ML 1 ML VIAL IV ONE; LIDOCAINE 1% (10MG/ML) FOR IV START INTRADERMA PRN; MIDAZOLAM 2 MG/2 ML VIAL IV PRN; ONDANSETRON 4 MG/2 ML VIAL IVP ONE; ceFAZolin 3 GM in SODIUM CHLORIDE 0.9% 100 ML IVPB PRN
[2022-04-21] MEDS: LACTATED RINGERS 1,000 ML IV SCH ×2 (07:55→09:12)
[2022-04-21] MEDS ORDERED: LIDOCAINE 2% INJ 20 MG/ML (2 ML VIAL) ONE (09:12)
[2022-04-21] MEDS ORDERED: HYDROmorphone (PF) 1 MG/ML ONE (09:12)
[2022-04-21] MEDS ORDERED: fentaNYL (PF) 50 MCG/ML 2 ML AMP ONE (09:12)
[2022-04-21] MEDS ORDERED: MIDAZOLAM 2 MG/2 ML VIAL ONE (09:12)
[2022-04-21] MEDS ORDERED: SUCCINYLCHOLINE CHLORIDE 100 MG/5 ML SYR IV ONE (09:12)
[2022-04-21] MEDS ORDERED: PROPOFOL 10 MG/ML 20 ML VIAL IV ONE (09:12)
[2022-04-21] MEDS ORDERED: EPINEPHrine (PF) 1 ML in SODIUM CHLORIDE 0.9% IRRIGATIO 3,000 ML IRRIGATION ONE (09:31)
--- NOTE | 2022-04-21 09:57 | P.OP ---
Date of Procedure: 04/21/22 Preoperative Diagnosis: Right knee internal derangement Postoperative Diagnosis: Right knee posterior medial meniscal tear Procedure(s) Performed: Right knee arthroscopic partial medial meniscectomy Anesthesia: LALITHAA Surgeon: Omar Weaver Estimated Blood Loss (ml): 10 Pathology: none sent Condition: stable Disposition: PACU Indications for Procedure: The patient's a 51-year-old male who presents with progressive right knee pain and mechanical symptoms after previous injury despite conservative measures. A discussion of the risks and benefits of operative intervention versus continued conservative measures was made with patient. He opted proceed with surgery. Operative risks to include infection, neurovascular injury, development of blood clots, possible incomplete resolution of symptoms, possible worsening symptoms and need for subsequent procedures was discussed. Informed consent was obtained. Operative Findings: As below Description of Procedure: The patient was brought to the operating room, and after induction of general anesthesia examined the right knee. Collaterals were stable, Latha was negative, and posterior drawer was negative. The right lower extremity was prepped and draped in a normal fashion. A superior lateral portal was made through a 3 mm skin incision superior and lateral to the patella. This was used for outflow. A lateral portal was made through a 5 mm vertical skin incision lateral to the patella tendon above the joint line. Diagnostic arthroscopy was performed. On inspection of the medial compartment, a complex tear involving the posterior horn medial meniscus in the white-red junction was noted. This was not amenable to repair.. This was debrided back to stable base with straight baskets and a motorized shaver. Grade 2-3 chondral changes were noted diffusely in the medial compartment. On inspection of the notch, the anterior cruciate ligament appeared to be intact. On inspection of the lateral compartment, no significant meniscal or cartilage pathology was noted. On inspection of the patellofemoral articulation, there is grade 2-3 chondral changes involving the medial patella facet and femoral trochlea, however no loose chondral fragments. The gutters were clear debris. The knee was then thoroughly irrigated. The portals were closed with Steri-Strips. A sterile dressing was applied in addition to a compression stocking. The patient was awoken from general anesthesia and transferred to recovery room in good condition. Blood loss was estimated at 10 mL. No complications were incurred.
[2022-04-21] MEDS: HYDROmorphone 0.5 MG/0.5 ML SYRINGE IVP PRN ×2 (10:08→10:15)
[2022-04-21 10:09] VITALS: TEMP 98
[2022-04-21] MEDS ORDERED: LACTATED RINGERS 1,000 ML IV ONE (10:50)
[2022-04-21] MEDS ORDERED: HYDROcodone/APAP 5-325MG 1 EACH TAB PO ONE (11:15)
[2022-04-21 11:20] VITALS: RESP 18
[2022-04-21 11:39] VITALS: BP 129/68; PULSE 76
== END 2022-04-21 12:35 | disposition home or self-care (01) ==
LOC: OR 07:26
PROVIDERS: ATTEND Orthopaedic Surgery
DX: M23.91 Unspecified internal derangement of right knee (principal); S83.241A Other tear of medial meniscus, current injury, right knee, initial encounter; W01.0XXA Fall on same level from slipping, tripping and stumbling without subsequent striking against object, initial encounter; I10 Essential (primary) hypertension; M17.11 Unilateral primary osteoarthritis, right knee; Z83.3 Family history of diabetes mellitus
CPT/HCPCS: 29881; 84132; J2250; J1100; J0690; J2405; J0171; J3010; J1170 ×2; J0330; J2704; J2001